=== PATIENT | male | born 1965 | race Caucasian/White ===

== ENCOUNTER 2018-05-14 07:41 | Day surgery (SDC) | payer OTHER ==
[2018-05-14] MEDS ORDERED: KETOROLAC 30 MG/ML VIAL ONE (10:26)
[2018-05-14] MEDS ORDERED: LIDOCAINE 2% 100 MG/5 ML UJET TP ONE (10:26)
== END 2018-05-14 12:07 | disposition home or self-care (01) ==
LOC: MMU 07:41 → MDS 07:41
PROVIDERS: ATTEND Internal Medicine Gastroenterology
DX: D12.2 Benign neoplasm of ascending colon (principal); K57.90 Diverticulosis of intestine, part unspecified, without perforation or abscess without bleeding; F12.10 Cannabis abuse, uncomplicated; E66.9 Obesity, unspecified; Z68.34 Body mass index [BMI] 34.0-34.9, adult; Z98.890 Other specified postprocedural states
CPT/HCPCS: 45380; 45385; 88305; J1885; J7120